=== PATIENT | female | born 1960 | race Two or more races ===

== ENCOUNTER 2017-01-28 21:15 | Emergency (ER) | payer MEDICARE, OTHER ==
[~2017-01-28] VITALS: Ht 172.7 cm; Wt 74.8 kg
--- NOTE | 2017-01-28 21:20 | NUR ---
DR LYON AT BEDSIDE TO EVAL.
--- NOTE | 2017-01-28 21:20 | NUR ---
TO BED 5 A 56 YO FEMALE BIBRA FROM HOME; ALLERGIC REATION X 1 HOUR, STEPPED OUT OF SHOWER, FACE AND CHEST "RED AND HOT." UPON ARRIVAL TO ER, PATIENT IS AAOX4, BREATHING EVEN AND UNLABORED. NONDIAPHORETIC. INITIATED CARDIAC AND VS MONITORING. GOWNED. COMFORT MEASURES RENDERED.
[2017-01-28] MEDS ORDERED: methylPREDNISolone SOD SUCC 125 MG/2ML VIAL ONE (21:27)
[2017-01-28] MEDS ORDERED: diphenhydrAMINE HCL 50 MG/ML VIAL ONE (21:27)
[2017-01-28] MEDS ORDERED: ONDANSETRON 4 MG TAB.RAPDIS ONE (21:27)
[2017-01-28] MEDS ORDERED: EPINEPHRINE (1:1000) 1 MG/ML AMPUL ONE (21:27)
[2017-01-28] MEDS ORDERED: FAMOTIDINE/PF INJ 20 MG/2 ML VIAL IV ONE ×2 (21:28→21:30)
[2017-01-28] MEDS ORDERED: ONDANSETRON 4 MG TAB.RAPDIS PO ONE (21:30)
[2017-01-28] MEDS ORDERED: diphenhydrAMINE HCL 50 MG/ML VIAL IV ONE (21:30)
[2017-01-28] MEDS ORDERED: IV NS 0.9% 1,000 ML BAG IV ONE (21:30)
[2017-01-28] MEDS ORDERED: EPINEPHRINE (1:1000) MDV 30 MG/30ML VIAL SUBCUT ONE (21:30)
[2017-01-28] MEDS ORDERED: methylPREDNISolone SOD SUCC 125 MG/2ML VIAL IV ONE (21:30)
--- NOTE | 2017-01-28 21:36 | NUR ---
MEDICATED PATIENT ORDERED BY DR LYON.
[2017-01-28] MEDS ORDERED: LORAZEPAM INJ 2 MG/ML VIAL ONE (22:10)
[2017-01-28] MEDS ORDERED: LORAZEPAM INJ 2 MG/ML VIAL IV ONE (22:30)
--- NOTE | 2017-01-28 23:10 | NUR ---
PATIENT IS SLEEPING COMFORTABLY AT THIS TIME. VSS.
--- NOTE | 2017-01-29 01:22 | NUR ---
PATIENT IS AWAKE AT THIS TIME, AND SAID SHE IS "FEELING BETTER." VSS.
--- NOTE | 2017-01-29 05:47 | NUR ---
IV removed. Catheter intact and site benign. Pressure and 4x4 applied to site. No bleeding noted. Patient discharged to home in stable condition. Written and verbal after care instructions given. Patient verbalizes understanding of instruction. Patient is ambulatory with steady gait. Instructed not to drive. Patient said her friend is picking her up. No further complaints.
[2017-01-29 05:49] VITALS: BP 101/65
== END 2017-01-29 05:51 | disposition home or self-care (01) ==
LOC: ER 21:19
DX: T78.1XXA Other adverse food reactions, not elsewhere classified, initial encounter (principal); I10 Essential (primary) hypertension; Y92.89 Other specified places as the place of occurrence of the external cause
CPT/HCPCS: 96360; 96372; 96374; 96375; 99284; A4606; J0171; J1200; J2060; J2930; J3490; J7030; Q0162; Z7610

== ENCOUNTER 2017-04-20 20:58 | Emergency (ER) | payer MEDICARE, OTHER ==
[~2017-04-20] VITALS: Ht 172.7 cm; Wt 75.7 kg
--- NOTE | 2017-04-20 21:18 | NUR ---
BB SELF; "GENERALIZED REDNESS/ ITICHY X 2 HOURS" PT AOX3 RR EVEN AND UNLABORED. NO SOB NOTED. NAD NOTED. NO NVD AT THIS TIME. PT GOWNED AND PLACED ON MONITOR WAITING FOR EVAL. PT NOT DIAPHORETIC
--- NOTE | 2017-04-20 21:19 | NUR ---
PT NOTED WITH REDNESS THROUGHOUT VÍCTOR UPPER EXT. NO SOB NOTED. HX THYROID SURGERY 1 MONTH AGO.
--- NOTE | 2017-04-20 21:37 | NUR ---
[place] AT BEDSIDE FOR EVAL. DAUGHTER AT BEDSIDE.
[2017-04-20] MEDS ORDERED: predniSONE 20 MG TABLET ONE (21:50)
[2017-04-20] MEDS ORDERED: diphenhydrAMINE HCL 50 MG/ML VIAL ONE (21:50)
[2017-04-20] MEDS ORDERED: diphenhydrAMINE HCL 50 MG/ML VIAL IM ONE (22:00)
[2017-04-20] MEDS ORDERED: predniSONE 20 MG TABLET PO ONE (22:00)
--- NOTE | 2017-04-20 22:22 | NUR ---
MAR[place]NA [place]KE AT BEDSIDE SPEAKING TO PT REGARDING RESULTS.
--- NOTE | 2017-04-20 22:43 | NUR ---
Patient discharged to home in stable condition. Written and verbal after care instructions given. Patient verbalizes understanding of instruction. ambulatory with a steady gait. instructed pt not to drive, pt verbalize understanding. pt accompanied by daughter
[2017-04-20 22:49] VITALS: BP 121/68
== END 2017-04-20 22:50 | disposition home or self-care (01) ==
LOC: ER 20:59
DX: T78.40XA Allergy, unspecified, initial encounter (principal); I10 Essential (primary) hypertension; Z91.013 Allergy to seafood; Y92.89 Other specified places as the place of occurrence of the external cause
CPT/HCPCS: 96372; 99283; A4606; J1200; J7512; Z7610

== ENCOUNTER 2018-03-13 10:15 | Emergency (ER) | payer MEDICARE, OTHER ==
[~2018-03-13] VITALS: Ht 172.7 cm; Wt 80.7 kg
--- NOTE | 2018-03-13 10:40 | NUR ---
RECEIVED PATIENT FROM HOME WITH CC EPIGASTRIC PAIN W/ NAUSEA AND VOMITING SINCE LAST NIGHT , 01/07 [place] IN [facility] , DENIES NAUSEA AND VOMITING AT THIS TIME , VSS ,AFEBRILE , ATTACHED TO MONITOR , WILL CONTINUE TO MONITOR
[2018-03-13] MEDS ORDERED: ONDANSETRON HCL/PF 4 MG/2 ML VIAL ONE (10:48)
[2018-03-13] MEDS ORDERED: HYDROMORPHONE 1 MG/1 ML DISP.SYRIN ONE (10:50)
[2018-03-13 10:59] LABS: BASOPHILS % (AUTO) 0.3 % (0.0-2.0); EOSINOPHILS % (AUTO) 0.8 % (0.0-6.0); HEMATOCRIT 41 % (33-45); HEMOGLOBIN 13.6 g/dL (11.5-14.8); LYMPHOCYTES # (AUTO) 0.6 /CMM (0.8-4.8); LYMPHOCYTES % (AUTO) 6.1 % (20.0-44.0); MEAN CORPUSCULAR HGB CONC 33 g/dl (31.0-36.0); MEAN CORPUSCULAR VOLUME 84 fL (82-100); MONOCYTES # (AUTO) 0.5 /CMM (0.1-1.30); MONOCYTES % (AUTO) 5.6 % (2.0-12.0); NEUTROPHILS # (AUTO) 8.1 /CMM (1.8-8.9); NEUTROPHILS % (AUTO) 87.2 % (43.0-81.0); PLATELET COUNT (AUTO) 212 /CMM (150-450); RED BLOOD CELL COUNT(AUTO) 4.88 MIL/uL (4.0-5.2); WHITE BLOOD COUNT (AUTO) 9.3 K/uL (4.3-11.0)
[2018-03-13] MEDS ORDERED: HYDROMORPHONE INJ 2 MG/ML DISP.SYRIN IV ONE (11:00)
[2018-03-13] MEDS ORDERED: IV NS 0.9% 1,000 ML BAG IV ONE (11:00)
[2018-03-13] MEDS ORDERED: ONDANSETRON HCL/PF 4 MG/2 ML VIAL IVP ONE (11:00)
[2018-03-13 11:08] LABS: CALCIUM, SERUM 8.5 mg/dL (8.5-10.1); CARBON DIOXIDE 28 mmol/L (21-32); CHLORIDE 104 mmol/L (98-107); CREATININE 0.9 mg/dL (0.6-1.3); GLUCOSE 145 mg/dL (74-106); POTASSIUM 4.6 mmol/L (3.5-5.1); SODIUM SERUM 138 mmol/L (136-145); UREA NITROGEN, BLOOD 13 mg/dL (7-18)
[2018-03-13 11:14] LABS: ALANINE AMINOTRANSFERASE 38 U/L (12-78); ALBUMIN 3.7 g/dL (3.4-5.0); ALKALINE PHOSPHATASE 94 U/L (46-116); ASPARTATE AMINOTRANSFERASE 21 U/L (15-37); BILIRUBIN,DIRECT 0.1 mg/dL (0.0-0.2); BILIRUBIN,TOTAL 0.8 mg/dL (0.2-1.0); LIPASE 97 U/L (73-393); TOTAL PROTEIN, SERUM 7.6 g/dL (6.4-8.2)
[2018-03-13 11:17] LABS: TROPONIN I < 0.017 ng/mL (0.00-0.056)
--- NOTE | 2018-03-13 11:20 | NUR ---
URINE SPECIMEN COLLECTED , LABELED AND SENT TO LAB
--- NOTE | 2018-03-13 11:47 | NUR ---
US TECH AT BEDSIDE ,
[2018-03-13 12:45] VITALS: BP 120/55
--- NOTE | 2018-03-13 12:58 | NUR ---
DISCHARGE PT HOME , VSS , DISCHARGE INSTRUCTION AND PRESCRIPTION GIVEN AND VERBALIZED UNDERSTANDING , IV DISCONTINUED ,
== END 2018-03-13 12:49 | disposition home or self-care (01) ==
LOC: ER 10:18
DX: R10.11 Right upper quadrant pain (principal); R11.2 Nausea with vomiting, unspecified; I10 Essential (primary) hypertension; E03.9 Hypothyroidism, unspecified; R00.0 Tachycardia, unspecified
CPT/HCPCS: 36415; 76705-TC; 80048-TC; 80076-TC; 83690-TC; 84484-TC; 85025-TC; A4606; J1170; J2405; J7030; Z7610

== ENCOUNTER 2018-09-03 23:08 | Emergency (ER) | payer MEDICARE, OTHER ==
[~2018-09-03] VITALS: Ht 172.7 cm; Wt 78.0 kg
[2018-09-03 23:14] VITALS: BP 156/99
[2018-09-04] MEDS ORDERED: METOCLOPRAMIDE HCL 10 MG/2 ML VIAL IM ONE (01:00)
== END 2018-09-04 01:47 | disposition home or self-care (01) ==
LOC: ER 23:16
DX: R42 Dizziness and giddiness (principal); E05.90 Thyrotoxicosis, unspecified without thyrotoxic crisis or storm